=== PATIENT | female | born 1965 | race Caucasian/White ===

== ENCOUNTER → 2021-11-01 | Outpatient (CLI) | payer BC ==
[~2021-11-01] MED LIST: FUROSEMIDE 10 MG/ML 2 ML VIAL IV ONE
--- NOTE | 2021-11-01 15:09 | NM ---
EXAMINATION TYPE: NM lasix renogram DATE OF EXAM: 11/01/2021 COMPARISON: None HISTORY: N 13.30, hydronephrosis on the right Following administration of 9.6 mCi Tc 99m MAG3 with 20mg Lasix. Immediate images post injection FINDINGS: Left: 50 %. Right: 50 %. Max renal flow left: 2.5 minutes. Max renal flow right: 50 minutes. Satisfactory accumulation of radiotracer within both renal collecting systems. After the administrati on of Lasix, there is prompt excretion from both collecting systems. Slight discrepancy seen within t he increase in delayed activity in the right kidney as compared to left is noted. Clearance of the ra diopharmaceutical is noted from both kidneys on delayed imaging with mild asymmetry somewhat increase d in the right collecting system as compared to left on delayed images. T 1/2 left: 25.5 minutes. T 1/2 right: 18.7 minutes. IMPRESSION: Findings may be due to partial UPJ obstruction.
== END | disposition home or self-care (01) ==
LOC: RADNMMAIN 12:58
PROVIDERS: ATTEND Urology
DX: N13.30 Unspecified hydronephrosis (principal)
CPT/HCPCS: 78708; A9562

== ENCOUNTER → 2023-03-30 | Outpatient (CLI) | payer OTHER ==
--- NOTE | 2023-04-01 15:55 | MR ---
EXAMINATION TYPE: MR shoulder LT wo con DATE OF EXAM: 03/30/2023 COMPARISON: None HISTORY: Lt shoulder pain, injury lifting TECHNIQUE: Multiplanar, multisequence imaging of the left shoulder is performed without contrast. FINDINGS: There is bone marrow edema in the distal left clavicle and acromion process of the scapula. There is fluid within the AC joint. There is a suggestion of possible small subchondral fracture of the distal clavicle. 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 There are a few subchondral cysts of the humeral head but there is no rotator cuff tear. The supraspi natus, infraspinatus and subscapularis tendons are intact. The cartilaginous labrum is grossly normal and the biceps anchor is attached. The biceps tendon is no rmal in signal intensity and position within the bicipital groove. There is no joint effusion. There is no subacromial or subdeltoid bursitis. 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
== END | disposition home or self-care (01) ==
LOC: RADMRIMAIN 14:33
PROVIDERS: ATTEND Family Medicine
DX: M24.812 Other specific joint derangements of left shoulder, not elsewhere classified (principal); S49.92XA Unspecified injury of left shoulder and upper arm, initial encounter; X58.XXXA Exposure to other specified factors, initial encounter

== ENCOUNTER → 2024-02-21 | Day surgery (SDC) | payer BC ==
[2024-02-19 12:24] VITALS: BMI 31.1
[~2024-02-21] MED LIST changes: -FUROSEMIDE 10 MG/ML 2 ML VIAL IV ONE; +PROPOFOL 10 MG/ML 20 ML VIAL IV ONE
[2024-02-21] MEDS: IV FLUID CONTINUATION 1,000 ML IV ONE (13:35)
[2024-02-21 13:40] VITALS: TEMP 98.8
[2024-02-21] MEDS: LACTATED RINGERS 1,000 ML IV SCH (13:54)
[2024-02-21 14:01] LABS: Glucose,Whole Blood 89 mg/dL (70-110)
--- NOTE | 2024-02-21 15:30 | P.PCN ---
Date of Procedure: 02/21/24 Procedure(s) Performed: BRIEF HISTORY: Patient is a 58-year-old pleasant white female scheduled for an elective colonoscopy as a part of evaluation of Hemoccult positive stool. PROCEDURE PERFORMED: Colonoscopy snare polypectomy and tattooing with Cheyenne ink. PREOPERATIVE DIAGNOSIS: Hemoccult positive stool. IV sedation per Anesthesia. PROCEDURE: After informed consent was obtained, the patient, was brought into the endoscopy unit. IV sedation was administered by Anesthesia under continuous monitoring. Digital rectal examination was normal. Initially the Olympus CF-160 flexible video colonoscope was then inserted in the rectum, gradually advanced into the cecum without any difficulty. Careful examination was performed as the scope was gradually being withdrawn. Ileocecal valve and the appendiceal orifice were visualized and appeared normal. Prep was excellent. Mucosa of the cecum, ascending colon, normal. The hepatic flexure there was a 4 cm broad-based polyp that was removed by piecemeal snare polypectomy at approximately 75% of the polyp was removed. Following this tattooing was performed with Cheyenne ink. Rest of the transverse colon, descending colon, sigmoid colon, and rectum appeared normal. Retroflexion was performed in the rectum and no lesions were seen. The patient tolerated the procedure well. IMPRESSION: 4 cm broad-based hepatic flexure polyp status post piecemeal snare polypectomy followed by tattooing with Cheyenne ink and approximately 75% of the polyp was payton dat Rest of the colon appeared normal. RECOMMENDATIONS: Findings of this examination were discussed with the patient as well as her family. She was advised to follow with the biopsy results. She will be seen in the office in 1 week and based on the biopsy results we will decide surgical resection versus repeat colonoscopy in 1 month..
[2024-02-21 16:30] VITALS: BP 126/79; PULSE 68; RESP 16
== END ==
LOC: ORWHC2ENDO 13:10
PROVIDERS: ATTEND Internal Medicine Gastroenterology
DX: R19.5 Other fecal abnormalities
CPT/HCPCS: 45380; 45381; 45385

== ENCOUNTER 2024-02-22 18:40 | Emergency (ER) | payer BC ==
--- NOTE | 2024-02-22 19:00 | ED ---
GI Bleed HPI - General Chief complaint: GI Bleed Stated complaint: post op/bowel bleeding Time Seen by Provider: 02/22/24 18:58 Source: patient, RN notes reviewed Mode of arrival: ambulatory Limitations: no limitations - History of Present Illness Initial comments: 58-year-old female presenting with hematochezia 30 minutes ago. States she had a colonoscopy performed yesterday by Dr. Prajapati due to positive occult test. Dr. Lamar informed her that she removed part of a polyp during the procedure. Patient has been having some mild right lower quadrant abdominal pain since the procedure eating and drinking normally since the procedure and had 3 nonbloody bowel movements. States she had a bowel movement 30 minutes ago that filled the toilet bowl with bright red blood. Denies fever, chills, vomiting. Denies blood thinners. - Related Data Home Medications Medication Instructions Recorded Confirmed Losartan [Cozaar] 50 mg PO DAILY 02/19/24 02/21/24 Meloxicam [Mobic] 15 mg PO HS 02/19/24 02/21/24 metFORMIN HCL ER [Glucophage XR] 500 mg PO HS 02/19/24 02/21/24 Allergies Allergy/AdvReac Type Severity Reaction Status Date / Time codeine Allergy Rash/Hives, Verified 02/22/24 18:44 ITCHING Review of Systems ROS Statement: Those systems with pertinent positive or pertinent negative responses have been documented in the HPI. ROS Other: All systems not noted in ROS Statement are negative. Past Medical History Past Medical History: Diabetes Mellitus, Hypertension, Sleep Apnea/CPAP/BIPAP Additional Past Medical History / Comment(s): + OCCULT TEST AND ANEMIA. USES C- PAP History of Any Multi-Drug Resistant Organisms: None Reported Past Surgical History: Hysterectomy, Orthopedic Surgery Additional Past Surgical History / Comment(s): RT SHOULDER REPAIR Past Anesthesia/Blood Transfusion Reactions: No Reported Reaction Past Psychological History: No Psychological Hx Reported Smoking Status: Former smoker - Past Family History Father Family Medical History: Cancer General Exam Limitations: no limitations General appearance: alert, in no apparent distress Head exam: Present: atraumatic, normocephalic, normal inspection Eye exam: Present: normal appearance, PERRL, EOMI. Absent: scleral icterus, conjunctival injection, periorbital swelling Respiratory exam: Present: normal lung sounds bilaterally. Absent: respiratory distress, wheezes, rales, rhonchi, stridor Cardiovascular Exam: Present: regular rate, normal rhythm, normal heart sounds. Absent: systolic murmur, diastolic murmur, rubs, gallop, clicks GI/Abdominal exam: Present: soft, normal bowel sounds. Absent: distended, tenderness, guarding, rebound, rigid Neurological exam: Present: alert, oriented X3 Psychiatric exam: Present: normal affect, normal mood Skin exam: Present: warm, dry, intact, normal color. Absent: rash Course Vital Signs 02/22/24 02/22/24 18:41 22:12 Temperature 98.5 F 99.0 F Pulse Rate 95 70 Respiratory 18 16 Rate Blood Pressure 121/72 126/76 O2 Sat by Pulse 97 98 Oximetry Medical Decision Making - Medical Decision Making Was pt. sent in by a medical professional or institution (, [place], [employer], urgent care, hospital, or alf...) When possible be specific @ -No Did you speak to anyone other than the patient for history (EMS, parent, family, police, friend...)? What history was obtained from this source @ -No Did you review nursing and triage notes (agree or disagree)? Why? @ -I reviewed and agree with nursing and triage notes Were old charts reviewed (outside hosp., previous admission, EMS record, old EKG, old radiological studies, urgent care reports/EKG's, alf records)? Report findings @ -No old charts were reviewed Differential Diagnosis (chest pain, altered mental status, abdominal pain women, abdominal pain men, vaginal bleeding, weakness, fever, dyspnea, syncope, headache, dizziness, GI bleed, back pain, seizure, CVA, palpatations, mental health, musculoskeletal)? @ -Differential GI Bleed: Esophageal varices, aortoenteric fistula, Mihaela-Forman, gastritis, peptic ulcer disease, diverticulosis, inflammatory bowel disease, hemorrhoids, fissure, colitis, malignancy, Meckel's diverticulum, this is not meant to be an all- inclusive list. EKG interpreted by me (3pts min.). @ -None X-rays interpreted by me (1pt min.). @ -None done CT interpreted by me (1pt min.). @ -CT abdomen pelvis reveals normal appendix, no suspicious abnormality in right lower quadrant, no free air and no significant air-filled loops of bowel U/S interpreted by me (1pt. min.). @ -None done What testing was considered but not performed or refused? (CT, X-rays, U/S, labs)? Why? @ -None What meds were considered but not given or refused? Why? @ -None Did you discuss the management of the patient with other professionals (professionals i.e. Dr., PA, [employer], lab, RT, psych nurse, medical social worker, social insurance specialist, teacher, highway patrol officer, case mgr)? Give summary @ -No Was smoking cessation discussed for >3mins.? @ -No Was critical care preformed (if so, how long)? @ -No Were there social determinants of health that impacted care today? How? (Homelessness, low income, unemployed, alcoholism, drug addiction, transportation, low edu. Level, literacy, decrease access to med. care, fdc, rehab)? @ -No Was there de-escalation of care discussed even if they declined (Discuss DNR or withdrawal of care, Hospice)? DNR status @ -No What co-morbidities impacted this encounter? (DM, HTN, Smoking, COPD, CAD, Cancer, CVA, ARF, Chemo, Hep., AIDS, mental health diagnosis, sleep apnea, morbid obesity)? @ -None Was patient admitted / discharged? Hospital course, mention meds given and route, prescriptions, significant lab abnormalities, going to OR and other pertinent info. @ -Patient was discharged. This is a 58-year-old female presenting with hematochezia 1 hour ago status post colonoscopy with Dr. Prajapati yesterday. Patient is also complaining of mild right lower quadrant abdominal pain since the procedure. Vital signs within normal limits. Abdomen is soft and nontender to palpation. Lab work including CBC, CMP, lactic acid remarkable for slightly decreased hemoglobin at 10.2, however otherwise unremarkable. CT of abdomen revealed normal appendix, no suspicious abnormality in right lower quadrant, no free air and no significant air-filled loops of bowel. Findings were discussed with patient. Patient feels comfortable with discharge at this time with strict return precautions and close follow-up with Dr. Prajapati Saturday morning. Return parameters discussed with patient in detail and she is agreeable to plan. Case was discussed with my ED attending Dr. Reed. Patient discharged in stable condition. Undiagnosed new problem with uncertain prognosis? @ -No Drug Therapy requiring intensive monitoring for toxicity (Heparin, Nitro, Insulin, Cardizem)? @ -No Were any procedures done? @ -No Diagnosis/symptom? @ -Hematochezia status post colonoscopy Acute, or Chronic, or Acute on Chronic? @ -Acute Uncomplicated (without systemic symptoms) or Complicated (systemic symptoms)? @ -Uncomplicated Side effects of treatment? @ -No Exacerbation, Progression, or Severe Exacerbation? @ -No Poses a threat to life or bodily function? How? (Chest pain, [place], [place], pneumonia, PE, COPD, DKA, ARF, appy, cholecystitis, CVA, Diverticulitis, Homicidal, Suicidal, threat to staff... and all critical care pts) @ -Not at this time - Lab Data Result diagrams: 02/22/24 19:25 02/22/24 19:25 Lab Results 02/22/24 02/22/24 02/22/24 Range/Units 19:25 19:25 19:25 WBC 9.1 (3.8-10.6) k/uL RBC 4.49 (3.80-5.40) m/uL Hgb 10.2 L (11.4-16.0) gm/dL Hct 32.4 L (34.0-46.0) % MCV 72.3 L (80.0-100.0) fL MCH 22.8 L (25.0-35.0) pg MCHC 31.6 (31.0-37.0) g/dL RDW 14.5 (11.5-15.5) % Plt Count 253 (150-450) k/uL MPV 7.2 Neutrophils % 76 % Lymphocytes % 18 % Monocytes % 4 % Eosinophils % 1 % Basophils % 0 % Neutrophils # 6.9 (1.3-7.7) k/uL Lymphocytes # 1.6 (1.0-4.8) k/uL Monocytes # 0.4 (0-1.0) k/uL Eosinophils # 0.1 (0-0.7) k/uL Basophils # 0.0 (0-0.2) k/uL Hypochromasia Moderate Microcytosis Slight PT 10.7 (10.0-12.5) sec INR 1.0 (<1.2) APTT 22.6 (22.0-30.0) sec Sodium 139 (137-145) mmol/L Potassium 3.6 (3.5-5.1) mmol/L Chloride 108 H (98-107) mmol/L Carbon Dioxide 26 (22-30) mmol/L Anion Gap 5 mmol/L BUN 18 H (7-17) mg/dL Creatinine 0.62 (0.52-1.04) mg/dL Est GFR (CKD-EPI)AfAm >90 (>60 ml/min/1.73 sqM) Est GFR (CKD-EPI)NonAf >90 (>60 ml/min/1.73 sqM) Glucose 167 H (74-99) mg/dL Plasma Lactic Acid Jerad (0.7-2.0) mmol/L Calcium 9.5 (8.4-10.2) mg/dL Total Bilirubin 0.4 (0.2-1.3) mg/dL AST 25 (14-36) U/L ALT 22 (4-34) U/L Alkaline Phosphatase 81 (38-126) U/L Total Protein 6.1 L (6.3-8.2) g/dL Albumin 3.8 (3.5-5.0) g/dL 02/22/24 Range/Units 19:25 WBC (3.8-10.6) k/uL RBC (3.80-5.40) m/uL Hgb (11.4-16.0) gm/dL Hct (34.0-46.0) % MCV (80.0-100.0) fL MCH (25.0-35.0) pg MCHC (31.0-37.0) g/dL RDW (11.5-15.5) % Plt Count (150-450) k/uL MPV Neutrophils % % Lymphocytes % % Monocytes % % Eosinophils % % Basophils % % Neutrophils # (1.3-7.7) k/uL Lymphocytes # (1.0-4.8) k/uL Monocytes # (0-1.0) k/uL Eosinophils # (0-0.7) k/uL Basophils # (0-0.2) k/uL Hypochromasia Microcytosis PT (10.0-12.5) sec INR (<1.2) APTT (22.0-30.0) sec Sodium (137-145) mmol/L Potassium (3.5-5.1) mmol/L Chloride (98-107) mmol/L Carbon Dioxide (22-30) mmol/L Anion Gap mmol/L BUN (7-17) mg/dL Creatinine (0.52-1.04) mg/dL Est GFR (CKD-EPI)AfAm (>60 ml/min/1.73 sqM) Est GFR (CKD-EPI)NonAf (>60 ml/min/1.73 sqM) Glucose (74-99) mg/dL Plasma Lactic Acid Jerad 1.1 (0.7-2.0) mmol/L Calcium (8.4-10.2) mg/dL Total Bilirubin (0.2-1.3) mg/dL AST (14-36) U/L ALT (4-34) U/L Alkaline Phosphatase (38-126) U/L Total Protein (6.3-8.2) g/dL Albumin (3.5-5.0) g/dL Disposition Clinical Impression: Hematochezia Disposition: HOME SELF-CARE Condition: Stable Instructions (If sedation given, give patient instructions): Gastrointestinal Bleeding (ED) Additional Instructions: Follow-up with Dr. Prajapati's office on Saturday. Please return to the Emergency Department if symptoms worsen or any other concerns. Is patient prescribed a controlled substance at d/c from ED?: No Referrals: Deshawn Umana MD [Primary Care Provider] - 1-2 days Time of Disposition: 22:11
[2024-02-22 20:23] LABS: Basophils % (A) 0 %; Eosinophils # (A) 0.1 k/uL (0-0.7); Eosinophils % (A) 1 %; HCT 32.4 % (34.0-46.0); HGB 10.2 gm/dL (11.4-16.0); Hypochromasia Moderate; Lymphocytes # (A) 1.6 k/uL (1.0-4.8); Lymphocytes % (A) 18 %; MCH 22.8 pg (25.0-35.0); MCHC 31.6 g/dL (31.0-37.0); MCV 72.3 fL (80.0-100.0); Mean Platelet Volume 7.2; Microcytosis Slight; Monocytes # (A) 0.4 k/uL (0-1.0); Monocytes % (A) 4 %; Neutrophils # (A) 6.9 k/uL (1.3-7.7); Neutrophils % (A) 76 %; Platelet Count 253 k/uL (150-450); RBC 4.49 m/uL (3.80-5.40); RDW 14.5 % (11.5-15.5); WBC 9.1 k/uL (3.8-10.6)
[2024-02-22 20:37] LABS: ALT 22 U/L (4-34); AST 25 U/L (14-36); African American GFR (CKD) >90 (>60 ml/min/1.73 sqM); Albumin 3.8 g/dL (3.5-5.0); Alkaline Phosphatase 81 U/L (38-126); Anion Gap 5 mmol/L; Blood Urea Nitrogen 18 mg/dL (7-17); Calcium 9.5 mg/dL (8.4-10.2); Carbon Dioxide 26 mmol/L (22-30); Chloride 108 mmol/L (98-107); Glucose 167 mg/dL (74-99); Non-African American GFR(CKD) >90 (>60 ml/min/1.73 sqM); Potassium 3.6 mmol/L (3.5-5.1); Sodium 139 mmol/L (137-145); Total Bilirubin 0.4 mg/dL (0.2-1.3); Total Protein 6.1 g/dL (6.3-8.2)
[2024-02-22 20:39] LABS: Partial Thromboplastin Time 22.6 sec (22.0-30.0); Prothrombin Time 10.7 sec (10.0-12.5)
--- NOTE | 2024-02-22 21:18 | CT ---
EXAMINATION TYPE: CT abdomen pelvis w con DATE OF EXAM: 02/22/2024 COMPARISON: None INDICATION: Colonoscopy x 1 day ago. RLQ abdominal pain with bright red blood in stool today. DLP: 1254.2 mGycm, Automated exposure control for dose reduction was used. CONTRAST: 100 ml mL of Isovue 300. Study performed without Oral Contrast TECHNIQUE: Axial images were obtained from above the diaphragm to the pubic rami in the axial plane a t 5 mm thick sections. Reconstructed images are reviewed on the computer in the coronal plane. FINDINGS: Limited CT sections are obtained the lung bases. The lung bases are clear. CT ABDOMEN: Liver: Normal Spleen: Normal Pancreas: Normal Adrenal glands: The adrenal glands are normal. Gallbladder: Normal Kidneys: No masses are evident. No hydronephrosis is present. There is a 3.2 cm cyst posterior la teral left kidney. No renal stones evident Aorta: Normal Inferior vena cava: Normal. CT PELVIS: No free air within the abdomen or pelvis. Loops of bowel within the abdomen and pelvis are normal. A few diverticula are present. This study is without oral contrast material in bowel evaluation. Appendix: Normal as visualized. Urinary bladder: Normal. Genitourinary structures: Uterus and adnexa are normal Osseous structures: No suspicious lytic or sclerotic lesions. IMPRESSION: 1. Normal appendix. 2. No suspicious abnormality right lower quadrant pain. 3. No free air and no significant air-filled loops of bowel are evident colonoscopy. [facility], , 02/22/2024 9:16 PM
[2024-02-22 22:24] VITALS: BP 126/76; PULSE 70; RESP 16; TEMP 99
== END 2024-02-22 22:24 | disposition home or self-care (01) ==
LOC: EC 18:40
DX: K92.1 Melena (principal)
CPT/HCPCS: 36415; 74177; 80053; 83605; 85025; 85610; 85730; 99284